=== PATIENT | male | born 1950 | race Caucasian/White ===

== ENCOUNTER 2020-11-20 05:14 | Emergency (ER) | payer MEDICARE, BC ==
[~2020-11-20] VITALS: Ht 172.7 cm; Wt 94.5 kg
[2020-11-20] MEDS ORDERED: HYDROcodone/APAP 5/325 TABLET ONE (05:41)
[2020-11-20] MEDS ORDERED: KETOROLAC 30 MG/1 ML ONE (05:41)
--- NOTE | 2020-11-20 05:45 | NUR ---
THIS IS A 70M THAT COMES IN W/ C/O RIGHT LEG PAIN WITH MOVEMENT X 2 DAYS. NO SWELLING, NO TRAUMA. PT AMBULATORY IN TRIAGE. NSAIDS AT HOME, NO RELIEF. PT RESTING ON GURNEY AT BEDSIDE NO NEEDS AT THIS TIME, VSS.
--- NOTE | 2020-11-20 05:49 | NUR ---
PT MEDICATED PER AUG 19 RIGHTS VERIFIED.
[2020-11-20] MEDS ORDERED: HYDROcodone/APAP 5/325 TABLET PO ONE (06:00)
[2020-11-20] MEDS ORDERED: KETOROLAC 30 MG/1 ML IM ONE (06:00)
[2020-11-20 06:16] LABS: BASOPHILS % (AUTO) 1 % (0-1); EOSINOPHILS % (AUTO) 3 % (1-7); LYMPHOCYTES % (AUTO) 27 % (22-44); MEAN CORPUSCULAR HEMOGLOBIN 30.9 pg (27.5-34.5); MEAN CORPUSCULAR HGB CONC 33.4 g/dL (33.2-36.2); MEAN PLATELET VOLUME 8.2 fL (7.4-10.4); MONOCYTES % (AUTO) 10 % (2-9); NEUTROPHILS % (AUTO) 59 % (42-75); PLATELET COUNT 218 x10^3/uL (130-400); RED BLOOD COUNT 4.57 x10^6/uL (4.38-5.82); RED CELL DISTRIBUTION WIDTH 14.1 % (9.4-14.8)
[2020-11-20 06:20] LABS: ANION GAP 6 mmol/L (5-15); CHLORIDE 110 mmol/L (98-107); CREATININE 0.94 mg/dL (0.7-1.3)
[2020-11-20 06:33] LABS: MD NO
--- NOTE | 2020-11-20 06:54 | NUR ---
BEDSIDE REPORT FROM SWAPNIL PRYOR FOR TRANSFER OF PATIENT CARE.
[2020-11-20] MEDS ORDERED: HYDROmorphone 1 MG/ML, 1ML INJ ONE (07:49)
--- NOTE | 2020-11-20 07:57 | NUR ---
PATIENT MEDICATED PER eMAR, CONNECTED TO MONITOR, VSS, AT BEDSIDE, CALL LIGHT WITHIN REACH.
[2020-11-20 08:00] VITALS: BP 115/72
[2020-11-20] MEDS ORDERED: HYDROmorphone 1 MG/ML, 1ML INJ IM ONE (08:00)
--- NOTE | 2020-11-20 08:24 | NUR ---
Patient given discharge instructions and prescriptions and they have confirmed that they understand the instructions. Patient ambulatory with steady gait. NAD, all questions answered appropriately, denies additional needs at this time. No personal belongings left in room after discharge.
== END 2020-11-20 08:25 | disposition home or self-care (01) ==
LOC: ED 07:46
DX: M54.41 Lumbago with sciatica, right side (principal); F17.200 Nicotine dependence, unspecified, uncomplicated
CPT/HCPCS: 36415; 72110; 80048; 85025; 96372; 99284; J1170; J1885

== ENCOUNTER 2020-11-22 10:27 | Emergency (ER) | payer MEDICARE, BC ==
[~2020-11-22] VITALS: Ht 172.7 cm; Wt 93.5 kg
--- NOTE | 2020-11-22 11:23 | NUR ---
PT TO ROOM FROM [facility] VIA W/C. PT SEEN HERE A COUPLE OF DAYS AGO FOR SAME. "I WAS DRIVING THE TRAVEL HOME AND I HAD A LITTLE TWINGE IN THE BACK OF THE RIGHT THIGH, MOVED AROUND TO THE FRONT THEN IT ADDED THE FRONT OF THE GABRIEL. NOW I'M GETTING IT ALMOST IN THE GROIN" HAD TROUBLE WALKING AND TROUBLE SITTING. "IT HASNT GONE AWAY"
--- NOTE | 2020-11-22 11:29 | NUR ---
DR GRAJEDA AT BEDSIDE TO GLADIS PT
[2020-11-22] MEDS ORDERED: HYDROmorphone 1 MG/ML, 1ML INJ ONE ×2 (11:42→13:47)
--- NOTE | 2020-11-22 11:52 | NUR ---
PT MEDICATED ORDERED. REVIEWED MRI SCREENING TOOL WITH PT.
[2020-11-22] MEDS ORDERED: HYDROmorphone 1 MG/ML, 1ML INJ IM ONE ×2 (12:30→14:00)
--- NOTE | 2020-11-22 12:53 | NUR ---
REPOR TO ABIGAIL RN
--- NOTE | 2020-11-22 13:00 | NUR ---
REPORT RC'VD FROM REGINA KRAFT. PT REMAINS IN MRI. IN ROOM.
--- NOTE | 2020-11-22 13:37 | NUR ---
PT RETURNED FROM MRI. REQUESTING ADDITIONAL PAIN MEDICATION; WILL NOTIFY
--- NOTE | 2020-11-22 13:59 | NUR ---
PT MEDICATED FOR R LEG PAIN. REMAINS AT BS.
--- NOTE | 2020-11-22 14:35 | NUR ---
ERP AT FOR RECHECK.
[2020-11-22 15:00] VITALS: BP 148/91
--- NOTE | 2020-11-22 16:00 | NUR ---
[facility] RX WAS SENT TO [facility] PER PT. D/C INSTRUCTIONS, MEDS & F/U APPT RV'WD WITH PT, HE VERBALIZES UNDERSTANDING. ASSISTED OUT OF ED VIA WC WITH .
== END 2020-11-22 16:11 | disposition home or self-care (01) ==
LOC: ED 10:30
DX: M54.41 Lumbago with sciatica, right side (principal); R10.2 Pelvic and perineal pain; F17.200 Nicotine dependence, unspecified, uncomplicated
CPT/HCPCS: 72148; 72195; 96372; 99285; J1170